=== PATIENT | female | born 1985 | race African-American/Black ===

== ENCOUNTER 2022-10-19 06:45 | Inpatient (IN) | payer MEDICAID, OTHER ==
[~2022-10-19] VITALS: Ht 160 cm; Wt 99.8 kg
[2022-10-19] MEDS ORDERED: LACT. RINGERS/OXYTOCIN 20UNITS 1,000 ML IV ONE (07:02)
[2022-10-19] MEDS ORDERED: LIDOCAINE 2%HCL (LOCAL ANESTH.) INJ 20ML MDV ONE (07:02)
[2022-10-19] MEDS ORDERED: OXYTOCIN 10UNIT/ML 1ML VIAL ONE (07:08)
[2022-10-19] MEDS ORDERED: BUTORPHANOL TARTRATE 2 MG/1 ML VIAL IV PRN ×2 (07:15)
[2022-10-19] MEDS ORDERED: PHISODERM TOP SOLN 240ML BTL TOP PRN (07:15)
[2022-10-19] MEDS ORDERED: LACTATED RINGER'S 1,000 ML IV SCH (07:15)
[2022-10-19] MEDS ORDERED: LIDOCAINE 2%HCL (LOCAL ANESTH.) INJ 20ML MDV IJ PRN (07:15)
[2022-10-19] MEDS ORDERED: PROMETHAZINE HCL 25 MG/ML 1ML IV PRN (07:15)
[2022-10-19] MEDS ORDERED: LACT. RINGERS/OXYTOCIN 20UNITS 500 ML IV ONE ×2 (07:15→07:45)
[2022-10-19] MEDS: WITCH HAZEL-GLYCERIN PAD TOP PRN (07:23)
[2022-10-19] MEDS: DERMOPLAST 60ML BOTTLE TOP PRN (07:24)
[2022-10-19 09:08] LABS: Basophils # (auto) 0 10 ^3/uL (0-0.2); Basophils % (auto) 0.3 % (0.0-2.0); Eosinophils # (auto) 0 10 ^3/uL (0-0.8); Hematocrit 33.8 % (36.0-46.0); Hemoglobin 11.1 g/dL (12.2-16.2); Lymphocytes # (auto) 0.9 10 ^3/uL (0.4-5.4); Lymphocytes % (auto) 6.7 % (10.0-50.0); Mean Corpuscular Hemoglobin 29.3 pg (28.0-32.0); Mean Corpuscular Hgb Conc. 32.8 g/dL (32.0-36.0); Mean Corpuscular Volume 89.1 fL (80.0-100.0); Monocytes # (auto) 0.5 10 ^3/uL (0-1.3); Monocytes % (auto) 3.5 % (0.0-12.0); Neutrophils % (auto) 89.5 % (37.0-80.0); Nucleated Red Blood Cells % 0.1 %; Red Blood Cells 3.79 10^6/uL (4.0-5.20); Red Cell Distribution Width 14.7 % (11.8-14.3); White Blood Cell 13.4 10^3/uL (4.4-10.8)
[2022-10-19 09:23] LABS: Albumin 2.2 g/dL (3.4-5.0); Calcium 8.2 mg/dL (8.5-10.1); Potassium 3.7 mmol/L (3.5-5.1)
[2022-10-19 09:28] LABS: BUN/Creatinine Ratio 16.7 (10.0-20.0); Bilirubin, Total 0.4 mg/dL (0.2-1.0)
[2022-10-19 09:48] LABS: INR 0.95 (0.9-1.15)
[2022-10-19] MEDS ORDERED: ACETAMINOPHEN 325 MG TAB PO PRN (10:00)
[2022-10-19] MEDS ORDERED: DOCUSATE CALCIUM 240 MG CAP PO SCH (10:00)
[2022-10-19] MEDS: IBUPROFEN 600 MG TAB PO PRN (10:09)
[2022-10-19 11:20] VITALS: BP 140/80
[2022-10-19 15:15] VITALS: BP 119/81
[2022-10-19 19:00] VITALS: BP 112/70
[2022-10-19 20:45] LABS: Urine Bacteria FEW /hpf (None Seen); Urine Blood 3+ /uL (Negative); Urine Specific Gravity 1.008 (1.001-1.035); Urine WBC 30 /hpf (0 - 5)
[2022-10-19 21:01] LABS: Amphetamine Screen, Urine NEGATIVE (NEGATIVE); Barbiturate Scree,Urine NEGATIVE (NEGATIVE); Benzodiazephine Screen, Urine NEGATIVE (NEGATIVE); Cannabinoid Screen, Urine NEGATIVE (NEGATIVE); Cocaine Screen, Urine NEGATIVE (NEGATIVE); Opiate Scree,Urine NEGATIVE (NEGATIVE); Phencyclidine Screen, Urine NEGATIVE (NEGATIVE)
[2022-10-19] MEDS ORDERED: DOCUSATE SOD 100 MG CAP PO SCH (22:00)
[2022-10-19 23:00] VITALS: BP 120/69
[2022-10-20 03:00] VITALS: BP 113/81
[2022-10-20] MEDS: IBUPROFEN 600 MG TAB PO PRN (03:00)
[2022-10-20] MEDS: WITCH HAZEL-GLYCERIN PAD TOP PRN (04:18)
[2022-10-20] MEDS: DERMOPLAST 60ML BOTTLE TOP PRN (04:18)
[2022-10-20] MEDS ORDERED: LIDO1CRE EX (05:13)
[2022-10-20] MEDS ORDERED: ACET325T10 PO (05:13)
[2022-10-20] MEDS ORDERED: IBU600T PO (05:13)
[2022-10-20] MEDS ORDERED: PREN-96 PO (05:13)
[2022-10-20] MEDS ORDERED: DOCU100C10 PO (05:13)
[2022-10-20 06:06] LABS: RPR Non Reactive (Non Reactive)
[2022-10-20 06:32] LABS: Basophils # (auto) 0 10 ^3/uL (0-0.2); Basophils % (auto) 0.3 % (0.0-2.0); Eosinophils # (auto) 0.1 10 ^3/uL (0-0.8); Eosinophils % (auto) 0.5 % (0.0-7.0); Hematocrit 30.6 % (36.0-46.0); Hemoglobin 10.1 g/dL (12.2-16.2); Lymphocytes # (auto) 2.1 10 ^3/uL (0.4-5.4); Lymphocytes % (auto) 18.2 % (10.0-50.0); Mean Corpuscular Hemoglobin 29.2 pg (28.0-32.0); Mean Corpuscular Hgb Conc. 32.9 g/dL (32.0-36.0); Mean Corpuscular Volume 88.8 fL (80.0-100.0); Monocytes # (auto) 0.9 10 ^3/uL (0-1.3); Monocytes % (auto) 7.5 % (0.0-12.0); Neutrophils # (auto) 8.5 10 ^3/uL (1.6-8.6); Neutrophils % (auto) 73.5 % (37.0-80.0); Nucleated Red Blood Cells % 0.1 %; Red Blood Cells 3.45 10^6/uL (4.0-5.20); Red Cell Distribution Width 14.2 % (11.8-14.3); White Blood Cell 11.6 10^3/uL (4.4-10.8)
[2022-10-20 07:05] VITALS: BP 109/67
== END 2022-10-20 13:00 | disposition home or self-care (01) | DRG 560 ==
LOC: LDRP 06:45 → OBSVTOIN 07:06 → LDRP 07:06
PROVIDERS: ADMIT Obstetrics & Gynecology; ATTEND Obstetrics & Gynecology
PROC: 10E0XZZ Delivery of Products of Conception, External Approach (ICD-10-PCS; principal; 2022-10-19)
PROC: 0KQM0ZZ Repair Perineum Muscle, Open Approach (ICD-10-PCS; 2022-10-19)
DX: O69.81X0 Labor and delivery complicated by cord around neck, without compression, not applicable or unspecified (principal); Z37.0 Single live birth; G96.01 Cranial cerebrospinal fluid leak, spontaneous; F17.200 Nicotine dependence, unspecified, uncomplicated; O34.219 Maternal care for unspecified type scar from previous cesarean delivery; O99.334 Smoking (tobacco) complicating childbirth; O70.1 Second degree perineal laceration during delivery; Z3A.39 39 weeks gestation of pregnancy; Z82.3 Family history of stroke; Z82.49 Family history of ischemic heart disease and other diseases of the circulatory system; Z90.49 Acquired absence of other specified parts of digestive tract; O99.354 Diseases of the nervous system complicating childbirth
CPT/HCPCS: 36415; 59025; 59409; 80053; 80307; 81001; 81002; 85025; 85610; 85730; 86592; 86703; 86762; 86850; 86900; 86901; 87340; 94760; 96365; 96366; G0378; J2590

== ENCOUNTER 2024-10-23 00:16 | Emergency (ER) | payer MEDICAID ==
[~2024-10-23] VITALS: Ht 160 cm; Wt 71.2 kg
[~2024-10-23 00:16] MED LIST: ACET-1882 PO; DOCU-265 PO; IBU600T PO; LIDO1CRE EX; PREN-96 PO
[2024-10-23 00:51] LABS: Basophils # (auto) 0 10 ^3/uL (0-0.2); Basophils % (auto) 0.6 % (0.0-2.0); Eosinophils # (auto) 0.1 10 ^3/uL (0-0.8); Eosinophils % (auto) 0.8 % (0.0-7.0); Hematocrit 40.9 % (36.0-46.0); Hemoglobin 13.7 g/dL (12.2-16.2); Lymphocytes # (auto) 2.8 10 ^3/uL (0.4-5.4); Lymphocytes % (auto) 38.5 % (10.0-50.0); Mean Corpuscular Hemoglobin 30.4 pg (28.0-32.0); Mean Corpuscular Hgb Conc. 33.6 g/dL (32.0-36.0); Mean Corpuscular Volume 90.7 fL (80.0-100.0); Monocytes # (auto) 0.5 10 ^3/uL (0-1.3); Neutrophils # (auto) 3.8 10 ^3/uL (1.6-8.6); Neutrophils % (auto) 53.1 % (37.0-80.0); Nucleated Red Blood Cells % 0.1 %; Platelet Count (auto) 306 10^3/uL (140-450); Red Blood Cells 4.51 10^6/uL (4.0-5.20); Red Cell Distribution Width 13.1 % (11.8-14.3); White Blood Cell 7.2 10^3/uL (4.4-10.8)
[2024-10-23 00:57] LABS: Urine Bacteria None Seen /hpf (None Seen)
[2024-10-23 00:59] LABS: Chloride 103 mmol/L (98-107); Potassium 3.7 mmol/L (3.5-5.1); Sodium 141 mmol/L (136-145)
[2024-10-23 01:00] LABS: Anion Gap 9 (5-15); Carbon Dioxide 29 mmol/L (20-31)
[2024-10-23 01:01] LABS: Calcium 9.5 mg/dL (8.7-10.4)
[2024-10-23 01:06] LABS: BUN/Creatinine Ratio 21.5 (10.0-20.0); Blood Urea Nitrogen 14 mg/dL (9-23); Glucose 98 mg/dL (74-106)
[2024-10-23 01:08] LABS: Urine Blood Negative /uL (Negative); Urine Clarity Clear (Clear); Urine Color Yellow (Yellow); Urine Mucus FEW (None Seen); Urine Protein, UAD Negative (Negative); Urine Specific Gravity 1.031 (1.001-1.035); Urine Squamous Epithelial Cell FEW /hpf (<5); Urine Urobilinogen 2 mg/dL (Negative); Urine WBC < 1 /HPF (0-5); Urine pH 6.5 (5.0-9.0)
--- NOTE | 2024-10-23 01:14 | ED.PDOC ---
History of Present Illness HPI Comments 38 y/o F presents with 8x day history of headaches. 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 She states on her neurologist being aware of current pain and is awaiting to take imaging to r/o CSF leakage. Denies any dizziness, lightheadedness, vision or speech changes, or further associated symptoms. Chief Complaint: Headache Time Seen by MD: 00:30 Reviewed Notes: Nurses Notes, Medications, Allergies Allergies: Coded Allergies: NO KNOWN ALLERGIES (Unverified , 10/19/22) Home Meds Active Scripts Lidocaine-Hydrocortisone Aceta (Lidocort 3-0.5 %) 1 Cre Cre, 1 CRE EX PRN for 14 Days, #1 CRE 1 Refill Prov:ISATUTRUONGANSLEY WILLINGHAMDinora 10/20/22 Vit W/ Ferrous Fumara ( One Daily) Daily Tab, 1 TAB PO DAILY, #90 TAB 3 Refills Prov:COSMEKASSANDRATRUONGANSLEY WILLINGHAM 10/20/22 Docusate Sodium (Docusate Sodium) 100 Mg Cap, 200 MG PO HS for 10 Days, #10 CAP Prov:COSMEKASSANDRATRUONGANSLEY WILLINGHAM 10/20/22 Acetaminophen (Acetaminophen) 325 Mg Tab, 650 MG PO Q6HPRN PRN for 10 Days, #80 TAB Prov:COSMEKASSANDRATRUONGANSLEY WILLINGHAM 10/20/22 Ibuprofen Micronized (MOTRIN TABLET) 600 Mg Tb, 600 MG PO Q6HP PRN for 15 Days, #60 TAB Prov:BRODYFIDELIATRUONGANSLEY WILLINGHAM 10/20/22 Information Source: Patient Mode of Arrival: Ambulatory Severity: Moderate Timing: Days Duration: Since onset Prehospital treatment: None Past Medical History Past Medical History (Other): 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 Surgical History: Denies all surgeries 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 ASSISTANT Hx Family History Family History: Unknown Social History Smoker: Non-Smoker Alcohol: Denies ETOH Use Drugs: Denies Drug Use Lives In: Home All Other Systems: Reviewed and Negative (Comprehensive systems review obtained and negative except for what is stated in the HPI.) Physical Exam General Appearance: No Apparent Distress, Normal HEENT: Normal ENT Inspection, Pharynx Normal, TMs Normal Neck: Full Range of Motion, Non-Tender, Normal, Normal Inspection Respiratory: Chest Non-Tender, Lungs Clear, No Accessory Muscle Use, No Respiratory Distress, Normal Breath Sounds Cardiovascular: No Edema, No JVD, No Murmur, No Gallop, Normal Peripheral Pulses, Regular Rate/Rhythm Breast Exam: Deferred Gastrointestinal: No Organomegaly, Non Tender, No Pulsatile Mass, Normal Bowel Sounds, Soft Genitalia: Deferred Pelvic: Deferred Rectal: Deferred Extremities: No calf tenderness, Normal capillary refill, Normal inspection, Normal range of motion, Non-tender, No pedal edema Musculoskeletal : Apperance: Normal Neurologic: Alert, production helper II-XII nml as Tested, No Motor Deficits, Normal Affect, Normal Mood, No Sensory Deficits, Other (no nuchal rigidity) Cerebellar Function: Normal Reflexes: Normal Skin: Dry, Normal Color, Warm Lymphatic: No Adenopathy Was a procedure done? Was a procedure done?: No Differential Dx Considerations may include: CSF leak, migraines, tension headache, viral syndrome, meningitis, electrolyte imbalance, dehydration, among others X-Ray, Labs, Meds, VS Vital Signs Date Time Temp Pulse Resp B/P (MAP) Pulse Ox O2 Delivery O2 Flow Rate FiO2 10/23/24 00:30 98.6 92 16 150/97 (114) 100 98.6 Lab Test 10/23/24 00:55 10/23/24 00:40 Range/Units Urine Color Yellow Yellow Urine Clarity Clear Clear Urine pH 6.5 5.0-9.0 Urine Specific Clever 1.031 1.001-1.035 Urine Protein Negative Negative Urine Ketones Negative Negative Urine Blood Negative Negative /uL Urine Nitrite Negative Negative Urine Bilirubin Negative Negative Urine Urobilinogen 2 H Negative mg/dL Urine Leukocyte Esterase Negative Negative /uL Urine RBC 1 0 - 4 /hpf Urine Microscopic WBC < 1 0-5 /HPF Urine Squamous Epithelial Cells Few <5 /hpf Urine Bacteria None seen None Seen /hpf Urine Mucus Few None Seen Urine Glucose Normal Normal mg/dL White Blood Count 7.2 4.4-10.8 10^3/uL Red Blood Count 4.51 4.0-5.20 10^6/uL Hemoglobin 13.7 12.2-16.2 g/dL Hematocrit 40.9 36.0-46.0 % Mean Corpuscular Volume 90.7 80.0-100.0 fL Mean Corpuscular Hemoglobin 30.4 28.0-32.0 pg Mean Corpuscular Hemoglobin Concent 33.6 32.0-36.0 g/dL Red Cell Distribution Width 13.1 11.8-14.3 % Platelet Count 306 140-450 10^3/uL Mean Platelet Volume 8.7 6.9-10.8 fL Neutrophils (%) (Auto) 53.1 37.0-80.0 % Lymphocytes (%) (Auto) 38.5 10.0-50.0 % Monocytes (%) (Auto) 7.0 0.0-12.0 % Eosinophils (%) (Auto) 0.8 0.0-7.0 % Basophils (%) (Auto) 0.6 0.0-2.0 % Neutrophils # (Auto) 3.8 1.6-8.6 10 ^3/uL Lymphocytes # (Auto) 2.8 0.4-5.4 10 ^3/uL Monocytes # (Auto) 0.5 0-1.3 10 ^3/uL Eosinophils # (Auto) 0.1 0-0.8 10 ^3/uL Basophils # (Auto) 0 0-0.2 10 ^3/uL Nucleated Red Blood Cells 0.1 % Sodium Level 141 136-145 mmol/L Potassium Level 3.7 3.5-5.1 mmol/L Chloride Level 103 98-107 mmol/L Carbon Dioxide Level 29 20-31 mmol/L Anion Gap 9 5-15 Blood Urea Nitrogen 14 9-23 mg/dL Creatinine 0.65 0.550-1.02 mg/dL Glomerular Filtration Rate Calc 116 >90 mL/min BUN/Creatinine Ratio 21.5 H 10.0-20.0 Serum Glucose 98 74-106 mg/dL Calcium Level 9.5 8.7-10.4 mg/dL Beta HCG, Quantitative 0.4 L 1.5-4.2 mIU/mL [address] [address] Ph: [phone] DIAGNOSTIC IMAGING Diagnostic Imaging Report : [id number] Signed PATIENT: TAMMI VIZCARRA ACCT: [id number] UNIT: [id number] : 1985 LOC: ER ROOM / BED: / AGE / SEX: 38 / F ADM STATUS: REG ER SERVICE [id number] ORDERING PHYSICIAN: SEVEN HELTON MD PROCEDURE(s): HWOCT - HEAD WITHOUT CONTRAST REASON: severe headache ORDER NUMBER(s): [id number], ACCESSION NUMBER(s): [id number] CT HEAD WITHOUT CONTRAST INDICATION: severe headache COMPARISON: None TECHNIQUE: CT of the head without intravenous contrast. RADIATION DOSE: CTDIvol: 48.66 mGy, DLP: 682.94 mGy*cm FINDINGS: There is no evidence of intracranial hemorrhage, infarct, extra-axial collection, mass effect, midline shift, herniation or hydrocephalus. The ventricles, sulci and cisterns are normal. The miller-white differentiation is normal. Enlarged partially empty sella noted. Considerable mucosal thickening with complete opacification of right sphenoid sinus and almost complete opacification of right maxillary sinus, mucosal thickening in right ethmoid sinus, minimal mucosal thickening in right frontal sinus. Mastoid air cells and middle ear cavities are clear. Soft tissues and osseous structures are unremarkable. IMPRESSION: No intracranial abnormality identified. ATED BY: STEVIE SANCHEZ MD DICTATED DATE/TIME: 10/23/24136 SIGNED BY: STEVIE SANCHEZ MD SIGNED DATE/TIME: 10/23/24136 CC: X-Ray, Labs, Meds, VS Comment Imaging: X-rays and CT scans were reviewed and interpreted by this provider, imaging shows congestion of the right sinus cavity. Pending radiology review. Laboratory: Labs reviewed and interpreted by this provider. No significant abnormalities noted. Patient has prior medical visits reviewed. Med reconciliation performed Vital signs reviewed Time of 1ST Reevaluation: 01:00 Reevaluation 1ST: Unchanged Patient Education/Counseling: Diagnosis, Treatment, Need For Follow Up (Follow up in the emergency department in the next 24-48 hours if symptoms worsen. It was advised to follow up with your primary care doctor in the next 3-4 days for further evaluation.) Family Education/Counseling: No Family Present Departure 1 Departure Time of Disposition: 02:29 Impression: Primary Impression: Sinusitis Qualified Codes: J01.00 - Acute maxillary sinusitis, unspecified Additional Impression: Sinus headache Disposition: HOME / SELF CARE / HOMELESS Condition: Fair e-Prescriptions Amoxicillin & Pot Clavulanate (AUGMENTIN TABLET) 875 Mg Tb 875 MG PO BID for 7 Days, #14 TAB Prov: KARTIK REYES 10/23/24 Discharged With: Self Critical Care Note Critical Care Time?: No Stability Stability form required: No Heart Score Heart Score: Heart Score Response (Comments) Value History N/A 0 EKG N/A 0 Age N/A 0 Risk Factors N/A 0 Troponin N/A 0 Total 0 I personally scribed for KARTIK REYES ([email or web address]) on 10/23/24 at 01:14. Electronically submitted by Espinoza Chadwick ([email or web address]). I personally scribed for KARTIK REYES ([email or web address]) on 10/23/24 at 01:53. Electronically submitted by Espinoza Chadwick ([email or web address]). KARTIK REYES October 23, 2024 01:14
--- NOTE | 2024-10-23 01:40 | DVH ---
CT HEAD WITHOUT CONTRAST INDICATION: severe headache COMPARISON: None TECHNIQUE: CT of the head without intravenous contrast. RADIATION DOSE: CTDIvol: 48.66 mGy, DLP: 682.94 mGy*cm FINDINGS: There is no evidence of intracranial hemorrhage, infarct, extra-axial collection, mass effect, midli ne shift, herniation or hydrocephalus. The ventricles, sulci and cisterns are normal. The miller-white differentiation is normal. Enlarged partially empty sella noted. Considerable mucosal thickening with complete opacification of right sphenoid sinus and almost comple te opacification of right maxillary sinus, mucosal thickening in right ethmoid sinus, minimal mucosal thickening in right frontal sinus. Mastoid air cells and middle ear cavities are clear. Soft tissues and osseous structures are unremarkable. IMPRESSION: No intracranial abnormality identified.
[2024-10-23] MEDS ORDERED: AUG875T PO (02:33)
[2024-10-23] MEDS: ONDANSETRON ODT 4 MG TAB PO ONE (04:23)
[2024-10-23] MEDS: KETOROLAC TROMETH 30 MG/ML 1ML VIAL IM ONE (04:24)
[2024-10-23] MEDS: methylPREDNISolone SOD SUCC 125 MG/2 ML VL IM ONE (04:24)
[2024-10-23 04:38] VITALS: PULSE 89; RESP 20; O2SAT 98
[2024-10-23 04:40] VITALS: BP 138/92; PULSE 89; RESP 20; TEMP 98.1; O2SAT 100
== END 2024-10-23 04:59 | disposition home or self-care (01) ==
LOC: ER 00:16
DX: J32.9 Chronic sinusitis, unspecified (principal); Z79.899 Other long term (current) drug therapy
CPT/HCPCS: 36415; 70450; 80048; 81001; 84702; 85025; 96372; 99285; J1885; J2919; Q0162

== ENCOUNTER 2024-11-12 17:39 | Emergency (ER) | payer MEDICAID ==
[~2024-11-12] VITALS: Ht 160 cm; Wt 71.7 kg
[~2024-11-12 17:39] MED LIST changes: +AUG875T PO
--- NOTE | 2024-11-12 19:05 | ED.PDOC ---
HPI (NEURO) HPI Comments 38 year old female presents to ER with complaints of headache x 1 month. Patient states she has been experiencing right sided headache with associated intermittent right sided facial pain and intermittent photophobia x 1 month. Notes that she was seen and evaluated for her symptoms in ER here 10/23/24 and had labs/CT head done at that time that revealed sinusitis and finished Augmentin antibiotics as prescribed without relief. She rates her current pain a 8/10 to right sided of forehead with radiation towards right occipital scalp. Notes she does have history of spontaneous CSF leak in 2019 and has been trying to get in touch with her neurologist but reports that her neurologist office hasn't responded back. Patient presents to ER alert and oriented x4, with steady gait, in no distress with vitals stable. Denies fever, n/v, numbness/tingling, runny nose, dizziness, vision changes, head injury or any further symptoms/complaints Chief Complaint: Headache Time Seen by MD: 18:07 Primary Care Provider: JOSEPH Reviewed Notes: Nurses Notes, Medications, Allergies Information Source: Patient Mode of Arrival: Ambulatory Past Medical History PAST MEDICAL HISTORY: High Lipids Past Medical History (Other): Spontaneous CSF leak - 2019 Surgical History: Denies all surgeries FOOD PRODUCTION MACHINE OPERATOR History: Denies all FOOD PRODUCTION MACHINE OPERATOR Hx Family History Family History: Unknown Social History Smoker: Non-Smoker Alcohol: Denies ETOH Use Drugs: Denies Drug Use Lives In: Home Constitutional: denies: chills, diaphoresis, fatigue, fever, malaise, sweats, weakness, others EENTM: reports: others (As stated in HPI) Respiratory: denies: cough, hemoptysis, orthopnea, SOB at rest, shortness of breath, SOB with excertion, stridor, wheezing, others Cardiovascular: denies: chest pain, dizzy spells, diaphoresis, Dyspnea on exertion, edema, irregular heart beat, left arm pain, lightheadedness, palpitations, PND, syncope, others Gastrointestinal: denies: abdomen distended, abdominal pain, blood streaked bowels, constipated, diarrhea, dysphagia, difficulty swallowing, hematemesis, melena, nausea, poor appetite, poor fluid intake, rectal bleeding, rectal pain, vomiting, others Genitourinary: denies: abnormal vagina bleeding, burning, dyspareunia, dysuria, flank pain, frequency, hematuria, incontinence, pain, , vagina discharge, urgency, others Neurological: reports: others (As stated in HPI) Musculoskeletal: denies: back pain, gout, joint pain, joint swelling, muscle pain, muscle stiffness, neck pain, others Integumetry: denies: bruises, change in color, change in hair/nails, dryness, laceration, lesions, lumps, rash, wounds, others Allergic/Immunocompromised: denies: Difficulty Healing, Frequent Infections, Hives, Itching, others Hematologic/Lymphatic: denies: anemia, blood clots, easy bleeding, easy bruising, swollen glands, others Endocrine: denies: excessive hunger, excessive sweating, excessive thirst, excessive urination, flushing, intolerance to cold, intolerance to heat, unexp lained weight gain, unexplained weight loss, others Psychiatric: denies: anxiety, bipolar disorder, depression, hopeless, panic disorder, schizophrenia, sleepless, suicidal, others Physical Exam General Appearance: No Apparent Distress HEENT: Normal ENT Inspection, PERRL/EOMI, Pharynx Normal, TMs Normal Neck: Full Range of Motion, Non-Tender, Normal Respiratory: Chest Non-Tender, Lungs Clear, No Accessory Muscle Use, No Respiratory Distress, Normal Breath Sounds Cardiovascular: No Murmur, No Gallop, Regular Rate/Rhythm Breast Exam: Deferred Gastrointestinal: NOT DONE Genitalia: Deferred Pelvic: Deferred Rectal: Deferred Extremities: Normal capillary refill, Normal range of motion Neurologic: Alert, geophysical laboratory supervisor II-XII nml as Tested, No Motor Deficits, Normal Affect, Normal Mood, No Sensory Deficits Cerebellar Function: Normal Reflexes: Normal Skin: Dry, Normal Color, Warm Lymphatic: No Adenopathy Was a procedure done? Was a procedure done?: No Sedation Sedation?: No Differential Diagnosis (SZ) Headache: Subarachnoid Hemorrhage, Subdural Hemorrhage, Mass Lesion X-Ray, Labs, Meds, VS Vital Signs Date Time Temp Pulse Resp B/P (MAP) Pulse Ox O2 Delivery O2 Flow Rate FiO2 11/12/24 17:54 98.6 93 20 106/77 (87) 99 98.6 PATIENT: TAMMI VIZCARRAACCT: [id number]: [id number] : 1985 LOC: ER ROOM / BED: / AGE / SEX: 38 / F ADM STATUS: REG ER SERVICE 57 ORDERING PHYSICIAN: DANIEL CALLOWAY PROCEDURE(s): HWOCT - HEAD WITHOUT CONTRAST REASON: headache ORDER NUMBER(s): [id number], ACCESSION NUMBER(s): [id number] CLINICAL HISTORY: headache TECHNIQUE: Helical imaging carried out from skull base to vertex without intravenous contrast. This exam was performed according to our departmental dose optimization program. Up-to-date CT equipment and radiation dose reduction techniques are utilized as appropriate. CTDIVol: 50.87 mGy DLP: 900.9 mGy-cm WID: COMPARISON: CT HEAD WITHOUT CONTRAST on DOS: 10/23/24 FINDINGS: The ventricles and subarachnoid spaces are normal in size and configuration. There is no midline shift or mass effect. The miller white matter interfaces are maintained. The basal cisterns are patent. There is no evidence of acute intracranial hemorrhage or extra-axial fluid collection. The mastoid air cells and visualized paranasal sinuses are well-aerated aside from a mucous retention cyst or polyp in the right sphenoid sinus. IMPRESSION: No acute intracranial abnormality. ATED BY: YAJAIRA BRADSHAW MD DICTATED DATE/TIME: 11/12/241938 SIGNED BY: YAJAIRA BRADSHAW MD SIGNED DATE/TIME: 11/12/241938 CC: CT head w/o contrast reviewed Advised to f/u with PCP and neurologist in 1-2 days Patient alert and oriented x4 prior to discharge. Patient verbalized understanding and agreeable with current plan of care Advised to return to ER immediately if symptoms worsen Images Reviewed?: Images reviewed and evaluated by me Time of 1ST Reevaluation: 19:12 Reevaluation 1ST: N/A Patient Education/Counseling: Diagnosis, Treatment, Prognosis, Need For Follow Up Family Education/Counseling: No Family Present Departure 1 Departure Time of Disposition: 19:42 Impression: Primary Impression: Migraine Qualified Codes: G43.909 - Migraine, unspecified, not intractable, without status migrainosus Disposition: HOME / SELF CARE / HOMELESS Condition: Stable e-Prescriptions Acetaminophen W/ Codeine (Tylenol W/Cod #3) 1 Tab Tb 1 TAB PO Q6HPRN, #10 TAB 0 Refills Prov: DANIEL CALLOWAY 11/12/24 Discharged With: Self Critical Care Note Critical Care Time?: No Stability Stability form required: No Heart Score Heart Score: Heart Score Response (Comments) Value History N/A 0 EKG N/A 0 Age N/A 0 Risk Factors N/A 0 Troponin N/A 0 Total 0 DANIEL CALLOWAY Nov 12, 2024 19:05
[2024-11-12 19:30] VITALS: BP 106/77; PULSE 93; RESP 20; TEMP 98.6; O2SAT 99
--- NOTE | 2024-11-12 19:42 | DVH ---
CLINICAL HISTORY: headache TECHNIQUE: Helical imaging carried out from skull base to vertex without intravenous contrast. This e xam was performed according to our departmental dose optimization program. Up-to-date CT equipment an d radiation dose reduction techniques are utilized as appropriate. CTDIVol: 50.87 mGy DLP: 900.9 mGy-cm WID: COMPARISON: CT HEAD WITHOUT CONTRAST on DOS: 10/23/24 FINDINGS: The ventricles and subarachnoid spaces are normal in size and configuration. There is no midline brianna ft or mass effect. The miller white matter interfaces are maintained. The basal cisterns are patent. Th ere is no evidence of acute intracranial hemorrhage or extra-axial fluid collection. The mastoid air cells and visualized paranasal sinuses are well-aerated aside from a mucous retention cyst or polyp i n the right sphenoid sinus. IMPRESSION: No acute intracranial abnormality.
[2024-11-12] MEDS ORDERED: ACE3T PO (19:47)
== END 2024-11-12 19:56 | disposition home or self-care (01) ==
LOC: ER 17:39
DX: G43.909 Migraine, unspecified, not intractable, without status migrainosus (principal); E78.5 Hyperlipidemia, unspecified
CPT/HCPCS: 70450